=== PATIENT | male | born 2000 ===

== ENCOUNTER 2023-03-25 17:28 | Inpatient (IN) | payer OTHER, SELFPAY ==
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
[2023-03-25 18:00] VITALS: BP 133/60; PULSE 67; RESP 18; TEMP 36.7; O2SAT 98
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
[2023-03-25 19:20] VITALS: BMI 23.8
[2023-03-25 21:35] VITALS: BP 133/82; PULSE 86; TEMP 36.6; O2SAT 94
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
[2023-03-26 09:32] LABS: Estimated Average Glucose 111 mg/dL; Hemoglobin A1c % 5.5 % (<6.0)
[2023-03-26 09:34] VITALS: BP 121/59; PULSE 56; TEMP 36.7; O2SAT 98
[2023-03-26 09:40] LABS: Cholesterol 163 mg/dL (<200); HDL Cholesterol 58 mg/dL (>40); LDL Cholesterol Calculated 96 mg/dL (<100); Magnesium 2.4 mg/dL (1.6-2.6); Triglycerides 47 mg/dL (<150)
[2023-03-26 09:55] LABS: Free T4 (Free Thyroxine) 1.23 ng/dL (0.71-1.85); Thyroid Stimulating Hormone 1.01 uIU/mL (0.32-4.0)
[2023-03-26 10:08] LABS: Folate 10.8 ng/mL (> or = 4.0); Vitamin B12 824 pg/mL (200-900)
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
[2023-03-26 20:18] VITALS: BP 129/59; PULSE 87; TEMP 36.2; O2SAT 98
[2023-03-26] MEDS: hydrOXYzine HCL 25 MG TABLET PO (21:58)
[2023-03-27] MEDS: traZODone HCL 50 MG TABLET PO ×2 (02:51→21:40)
[2023-03-27 09:25] VITALS: BMI 20.1
[2023-03-27 09:26] VITALS: BP 111/60; PULSE 63; RESP 20; TEMP 36.6; O2SAT 99
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
[2023-03-27 20:30] VITALS: BP 121/60; PULSE 54; RESP 16; TEMP 36.6; O2SAT 99
[2023-03-27] MEDS: hydrOXYzine HCL 25 MG TABLET PO (21:40)
[2023-03-28 08:00] VITALS: BP 101/54; PULSE 53; RESP 18; TEMP 36.4; O2SAT 99
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
== END 2023-03-28 10:30 | disposition home or self-care (01) | DRG 885 ==
PROVIDERS: Clinical Nurse Specialist Psychiatric/Mental Health, Adult; Admitting Provider Psychiatry & Neurology Psychiatry; PCP Pediatrics; Responsible Provider Registered Nurse; Visit Provider Psychiatry & Neurology Psychiatry
DX: F23 Brief psychotic disorder (principal); F90.9 Attention-deficit hyperactivity disorder, unspecified type; F17.210 Nicotine dependence, cigarettes, uncomplicated; Z71.6 Tobacco abuse counseling
CPT/HCPCS: 36415; 80061; 82607; 82746; 83036; 83735; 84439; 84443

== ENCOUNTER → 2023-03-25 17:28 | Outpatient (BNV) | payer OTHER, MEDICAID, SELFPAY | PROVIDERS: Admitting Provider Psychiatry & Neurology Psychiatry; PCP Pediatrics; Responsible Provider Registered Nurse; Visit Provider Psychiatry & Neurology Psychiatry | DX: F23 Brief psychotic disorder (principal) | CPT/HCPCS: 90792; 99231; 99238 ==

== ENCOUNTER → 2023-03-25 17:28 | Outpatient (BNV) | payer OTHER, MEDICAID, SELFPAY | PROVIDERS: Admitting Provider Psychiatry & Neurology Psychiatry; PCP Pediatrics; Responsible Provider Registered Nurse; Visit Provider Student in an Organized Health Care Education/Training Program | DX: Z02.2 Encounter for examination for admission to residential institution (principal) | CPT/HCPCS: 99429 ==